=== PATIENT | female | born 1985 | race Caucasian/White ===

== ENCOUNTER → 2016-04-15 | Outpatient (CLI) | payer BC ==
[2016-04-15 12:35] LABS: BASOPHILS # (AUTO) 0.03 10*3/UL; BASOPHILS % (AUTO) 0.3 % (0-1); EOSINOPHILS % (AUTO) 4.4 % (0-8); HEMATOCRIT 48.8 % (37.0-47.0); HEMOGLOBIN 17.3 g/dL (12.0-16.0); IMM GRAN % (AUTO) 0.1 % (0-5); IMM GRAN# (AUTO) 0.01 10*3/UL; LYMPHOCYTES % (AUTO) 20.5 % (10-50); MEAN CORPUSCULAR HEMOGLOBIN 31.2 PG (27-31); MEAN CORPUSCULAR HGB CONC 35.5 g/dL (33-37); MEAN PLATELET VOLUME 10.6 FL (7.4-12.2); MONOCYTES # (AUTO) 0.61 10*3/UL (0.3-0.8); MONOCYTES % (AUTO) 5.7 % (5-15); NEUTROPHILS # (AUTO) 7.42 10*3/UL; RED BLOOD COUNT 5.54 10^6/uL (4.20-5.40); WHITE BLOOD COUNT 10.74 10^3/uL (4.8-10.8)
[2016-04-15 12:36] LABS: PLATELET MORPHOLOGY COMMENT NORMAL MORPHOLOGY (NORM)
[2016-04-15 13:18] LABS: HIV ANTIBODY NEGATIVE (N); HIV-1 P24 ANTIGEN NEGATIVE (N)
[2016-04-17 07:09] LABS: HCV AB SCREEN Negative (Negative); HEP B SURFACE AG Negative (Negative)
[2016-04-17 07:10] LABS: RUBELLA IGG INDEX 1.2 (()); SYPHILIS IGG WITH REFLEX Negative (Negative)
== END ==
LOC: LAB 12:08
PROVIDERS: ATTEND Physician Assistant
DX: Z13.0 Encounter for screening for diseases of the blood and blood-forming organs and certain disorders involving the immune mechanism (principal); Z01.83 Encounter for blood typing; Z11.3 Encounter for screening for infections with a predominantly sexual mode of transmission; Z11.59 Encounter for screening for other viral diseases; Z11.8 Encounter for screening for other infectious and parasitic diseases; Z13.29 Encounter for screening for other suspected endocrine disorder
CPT/HCPCS: 36415; 85025; 86703; 86762; 86780; 86803; 86850; 86900; 86901; 87340

== ENCOUNTER → 2016-04-21 | Outpatient (CLI) | payer BC, OTHER ==
[2016-04-21 18:04] LABS: FREE T4 (FREE THYROXINE) 1.11 ng/dL (0.93-1.71)
== END ==
LOC: MOB LAB 15:03
PROVIDERS: ATTEND Nurse Practitioner Family
DX: R94.6 Abnormal results of thyroid function studies (principal)
CPT/HCPCS: 36415; 84439; 84443

== ENCOUNTER → 2016-05-11 | Outpatient (CLI) | payer BC, OTHER | LOC: LAB 10:50 | PROVIDERS: ATTEND Obstetrics & Gynecology Gynecology | DX: N91.2 Amenorrhea, unspecified (principal) | CPT/HCPCS: 36415; 82670 ==

== ENCOUNTER → 2016-05-15 | Outpatient (CLI) | payer BC, OTHER ==
--- NOTE | 2016-05-17 22:59 | DI ---
PELVIC ULTRASOUND, 05/15/2016 9:50 AM Clinical History: Primary amenorrhea. Previous Exam: 11/25/2015. Technique: Transvaginal scans are performed. The uterus measures 15 x 30 x 50 mm and is anteroflexed. The endometrial lining is quite thin. There is trace amount of fluid in the central uterine canal. The endometrial stripe measures 5 mm but the f luid within the uterine cavity probably accounts for 3 mm of the thickness. The ovaries are small in size and measure 7 x 12 x 12 mm for the right ovary and roughly 5 x 5 x 10 mm for the left ovary. Bot h ovaries demonstrate normal vascular flow. There are no fluid collections or masses. Readin. The uterus is anteroflexed and small in size. There is thinning of the endometrial lining with a trace amount of fluid in the central uterine canal. 2. Both ovaries are small in size but are otherwise normal. When compared to the previous exam, the ovaries now measure approximately half of the size of a previous measurements. 3. There has been otherwise no significant interval change.
== END ==
LOC: US 09:45
PROVIDERS: ATTEND Obstetrics & Gynecology Gynecology
DX: N91.2 Amenorrhea, unspecified (principal)
CPT/HCPCS: 76830